=== PATIENT | female | born 1985 | race Caucasian/White ===

== ENCOUNTER 2016-04-11 01:19 | Emergency (ER) | payer OTHER ==
[~2016-04-11 01:19] MED LIST: BACTRIM 400-801 TA1 PO; BENZACLIN GEL50 GM TOP; FLOXIN10 ML AS; NO MEDICATIONS; PRENATAL1 TA1 PO; TYLENOL #3 PO
[2016-04-11 01:22] LABS: URINE SOURCE CLEAN CATCH
[2016-04-11 01:27] LABS: MICRO INDICATED? YES; URINE APPEARANCE CLEAR; URINE BILIRUBIN NEG (NEG); URINE BLOOD TRACE (NEG); URINE COLOR YELLOW; URINE GLUCOSE NORM (NEG); URINE KETONE NEG (NEG); URINE LEUKOCYTE ESTERASE NEG (NEG); URINE NITRATE NEG (NEG); URINE PROTEIN NEG (NEG); URINE UROBILINOGEN NORM (NEG)
[2016-04-11 01:32] LABS: CULTURE INDICATED? NO; URINE BACTERIA NEG (NEG); URINE SQUAMOUS EPITHELIAL CELL OCCAS /[HPF]; URINE WBC 0-2 /[HPF] (0-5)
[2016-04-11 01:35] LABS: HEMATOCRIT 40.9 % (35.0-45.0); HEMOGLOBIN 13.9 gm/dL (12.0-16.0); MEAN CELL VOLUME 90.7 FL (83-96); MEAN CORPUSCULAR HEMOGLOBIN 30.8 PG (28-34); RED BLOOD COUNT 4.51 X10e (3.90-5.30); WHITE BLOOD COUNT 9.6 X10e3 (4.0-10.5)
[2016-04-11 01:36] LABS: BASOPHIL# 0.1 X10e3 (0-0.3); BASOPHIL% 0.8 % (0-2.5); DIFF IND NO; EOSINOPHIL# 0.3 X10e3 (0-0.7); EOSINOPHIL% 2.7 % (0.0-7.0); LYMPHOCYTE# 2.5 X10e3 (1.0-3.5); LYMPHOCYTE% 26.1 % (17.0-45.0); MEAN CORPUSCULAR HGB CONC 33.9 g/dL (30-36); MEAN PLATELET VOLUME 9.8 FL (6.5-11.5); MONOCYTE# 0.7 X10e3 (0-1.0); MONOCYTE% 7.2 % (3.0-12.0); NEUTROPHIL# 6.1 X10e3 (1.5-7.1); NEUTROPHIL% 63.2 % (40-75); PLATELET COUNT 183 X10e3 (140-420); RED CELL DISTRIBUTION WIDTH 12.4 % (11.0-15.5)
[2016-04-11 01:54] LABS: BLOOD UREA NITROGEN 14 mg/dL (9-23); CALCIUM SERUM 8.8 mg/dL (8.4-10.2); CARBON DIOXIDE 25 mmol/L (22-31); CHLORIDE 107 mmol/L (100-111); CREATININE SERUM 0.7 mg/dL (0.6-1.4); GLOM FILT RATE Estimated ABOVE60 mL/min (>60); GLUCOSE FASTING 78 mg/dL (70-110); POTASSIUM 3.5 mmol/L (3.5-5.1); SODIUM 136 mmol/L (135-145)
[2016-04-15 12:35] LABS: CHLAMYDIA TRACH Not Detected (Not Detected); N GONOR Not Detected (Not Detected)
== END 2016-04-11 02:28 | disposition home or self-care (01) ==
LOC: SED 01:19
PROVIDERS: Emergency Medicine
DX: O26.891 Other specified pregnancy related conditions, first trimester (principal); R10.2 Pelvic and perineal pain; O99.331 Smoking (tobacco) complicating pregnancy, first trimester
CPT/HCPCS: 36415; 80048; 81003; 84702; 85025; 87491; 87591; 87808; 87905; 99284

== ENCOUNTER 2016-07-06 18:05 | Emergency (ER) | payer OTHER ==
[2016-07-06] MEDS ORDERED: ZOFRAN (18:32)
== END 2016-07-06 20:13 | disposition home or self-care (01) ==
LOC: SED 18:05
DX: O99.719 Diseases of the skin and subcutaneous tissue complicating pregnancy, unspecified trimester (principal); F17.200 Nicotine dependence, unspecified, uncomplicated
CPT/HCPCS: 99283